=== PATIENT | female | born 1980 | race Two or more races ===

== ENCOUNTER 2016-05-04 12:35 | Emergency (ER) | payer MEDICAID ==
[~2016-05-04] VITALS: Ht 154.9 cm; Wt 63.5 kg
[2016-05-04] MEDS ORDERED: HYDROmorphone HCL 2 MG/ML VL IV ONE (13:15)
[2016-05-04] MEDS ORDERED: KETOROLAC TROMETH 30 MG/ML 1ML VIAL IV ONE (13:15)
[2016-05-04] MEDS ORDERED: ONDANSETRON HCL 4 MG/2 ML VIAL IV ONE (13:15)
[2016-05-04 13:48] LABS: Basophils # (auto) 0 uL; Basophils % (auto) 0.4 % (0.0-2.0); Eosinophils # (auto) 0.2 uL; Eosinophils % (auto) 3.2 % (0.0-7.0); Hematocrit 40.1 % (36.0-46.0); Lymphocytes % (auto) 25.7 % (10.0-50.0); Mean Corpuscular Hemoglobin 28.5 pg (28.0-32.0); Mean Corpuscular Hgb Conc. 32.5 g/dL (32.0-36.0); Mean Corpuscular Volume 87.7 fL (80.0-100.0); Mean Platelet Volume 7.9 fL (7.4-10.4); Monocytes # (auto) 0.4 uL; Monocytes % (auto) 5.8 % (0.0-12.0); Neutrophils # (auto) 4.9 uL; Neutrophils % (auto) 64.9 % (37.0-80.0); Platelet Count (auto) 434 10^3/uL (140-450); Red Cell Distribution Width 13.7 % (11.6-16.0); White Blood Cell 7.6 10^3/uL (4.4-10.8)
[2016-05-04 13:59] VITALS: BP 102/54
[2016-05-04 14:05] LABS: Urine Bilirubin Negative (Negative); Urine Color Yellow (Yellow); Urine Glucose Normal (Normal); Urine Ketone Negative (Negative); Urine Mucus FEW (None Seen); Urine Nitrite Negative (Negative); Urine RBC 87 /hpf (0 - 4); Urine Squamous Epithelial Cell FEW /hpf (<5); Urine Urobilinogen Normal (Negative); Urine pH 6.5 (5.0-8.0)
[2016-05-04 14:06] LABS: Urine Blood 2+ /uL (Negative)
[2016-05-04 14:08] LABS: Albumin 4.1 g/dL (3.4-5.0); BUN/Creatinine Ratio 14.3; Calcium 9.2 mg/dL (8.5-10.1); Potassium 3.4 mmol/L (3.5-5.1)
[2016-05-04 14:10] LABS: Bilirubin, Total 0.3 mg/dL (0.2-1.0); Total Protein 7.9 g/dL (6.4-8.2)
== END 2016-05-04 15:37 | disposition home or self-care (01) ==
LOC: ER 12:40
DX: N13.2 Hydronephrosis with renal and ureteral calculous obstruction (principal); I10 Essential (primary) hypertension; F17.210 Nicotine dependence, cigarettes, uncomplicated; F15.10 Other stimulant abuse, uncomplicated
CPT/HCPCS: 36415; 74176; 80053; 81001; 81025; 85025; 96374; 96375; 99285; J1170; J1885; J2405

== ENCOUNTER 2016-07-31 02:46 | Observation (INO) | payer MEDICAID ==
[~2016-07-31] VITALS: Ht 154.9 cm; Wt 63.5 kg
[2016-07-31 03:32] LABS: Basophils # (auto) 0 uL; Basophils % (auto) 0.3 % (0.0-2.0); Eosinophils # (auto) 0.3 uL; Eosinophils % (auto) 3.3 % (0.0-7.0); Hematocrit 42.8 % (36.0-46.0); Hemoglobin 14.2 g/dL (12.2-16.2); Lymphocytes # (auto) 2.6 uL; Lymphocytes % (auto) 24.3 % (10.0-50.0); Mean Corpuscular Hemoglobin 29.3 pg (28.0-32.0); Mean Corpuscular Hgb Conc. 33.1 g/dL (32.0-36.0); Mean Corpuscular Volume 88.6 fL (80.0-100.0); Mean Platelet Volume 7.9 fL (7.4-10.4); Monocytes # (auto) 0.7 uL; Monocytes % (auto) 6.5 % (0.0-12.0); Neutrophils % (auto) 65.6 % (37.0-80.0); Platelet Count (auto) 421 10^3/uL (140-450); Red Cell Distribution Width 13.1 % (11.6-16.0); White Blood Cell 10.6 10^3/uL (4.4-10.8)
[2016-07-31 03:54] LABS: Albumin 3.8 g/dL (3.4-5.0); Amylase 60 U/L (25-115); Anion Gap 7 (5-15); Aspartate Aminotransferase 15 U/L (15-37); BUN/Creatinine Ratio 17.6; Blood Urea Nitrogen 15 mg/dL (7-18); Calcium 8.6 mg/dL (8.5-10.1); Carbon Dioxide 30 mmol/L (21-32); Chloride 104 mmol/L (98-107); GFR African American 97 mL/min; GFR Non-African American 80 mL/min; Glucose 96 mg/dL (74-106); Potassium 3.8 mmol/L (3.5-5.1); Sodium 141 mmol/L (136-145)
[2016-07-31 03:57] LABS: Alkaline Phosphatase 102 U/L (45-117); Bilirubin, Total < 0.1 mg/dL (0.2-1.0); Total Protein 7.5 g/dL (6.4-8.2)
[2016-07-31] MEDS ORDERED: SODIUM CHLORIDE 0.9% 1,000 ML IV ONE (07:53)
[2016-07-31] MEDS ORDERED: KETOROLAC TROMETH 30 MG/ML 1ML VIAL IV ONE (08:00)
[2016-07-31 09:23] LABS: Urine Bilirubin Negative (Negative); Urine Blood Negative /uL (Negative); Urine Color Yellow (Yellow); Urine Glucose Normal (Normal); Urine Ketone Negative (Negative); Urine Mucus FEW (None Seen); Urine RBC 1 /hpf (0 - 4); Urine Squamous Epithelial Cell FEW /hpf (<5); Urine Urobilinogen Normal (Negative)
[2016-07-31 09:27] LABS: Urine Nitrite POSITIVE (Negative)
[2016-07-31 09:31] VITALS: BP 139/87
== END 2016-07-31 09:42 | disposition home or self-care (01) | DRG 465 ==
LOC: ER 02:48 → OVERFLOW 08:00 → ER 09:42
PROVIDERS: ADMIT Emergency Medicine; ATTEND Emergency Medicine
DX: N20.0 Calculus of kidney (principal); I10 Essential (primary) hypertension; R11.2 Nausea with vomiting, unspecified; F17.210 Nicotine dependence, cigarettes, uncomplicated; Z87.442 Personal history of urinary calculi
CPT/HCPCS: 36415; 74176; 80053; 81001; 82150; 83690; 84702; 85025; 96361; 96374; 99285; G0378; J1885; J7030

== ENCOUNTER 2017-01-23 18:37 | Emergency (ER) | payer MEDICAID ==
[~2017-01-23] VITALS: Ht 154.9 cm; Wt 63.5 kg
[2017-01-23 18:43] VITALS: BP 163/108
[2017-01-23] MEDS ORDERED: cloNIDine HCL 0.1 MG TAB PO ONE (19:00)
[2017-01-23 20:12] LABS: Urine RBC None Seen /hpf (0 - 4)
[2017-01-23 20:37] LABS: Urine Bilirubin Negative (Negative); Urine Blood Negative /uL (Negative); Urine Color Yellow (Yellow); Urine Glucose Normal (Normal); Urine Hyaline Cast FEW /lpf (0 - 2); Urine Ketone Negative (Negative); Urine Mucus FEW (None Seen); Urine Nitrite POSITIVE (Negative); Urine Squamous Epithelial Cell FEW /hpf (<5); Urine Urobilinogen Normal (Negative); Urine pH 6.5 (5.0-8.0)
== END 2017-01-23 21:24 | disposition left against medical advice (07) ==
LOC: ER 18:37
DX: M79.89 Other specified soft tissue disorders (principal); Z53.21 Procedure and treatment not carried out due to patient leaving prior to being seen by health care provider
CPT/HCPCS: 80307; 81001; 81025